=== PATIENT | female | born 1975 | race Caucasian/White ===

== ENCOUNTER 2017-11-17 10:28 | Emergency (ER) | payer SELFPAY ==
[~2017-11-17] VITALS: Ht 160 cm; Wt 60.0 kg
[~2017-11-17 10:28] MED LIST: BACT800T5 PO; CEPH500T PO; LAMI1SPR3 TOP; NAPR40TA PO
[2017-11-17 10:30] VITALS: BP 139/90; PULSE 138; RESP 16; TEMP 98.2; O2SAT 98
[2017-11-17] MEDS ORDERED: SODIUM CHLOR 0.9% 1000 ML INJ 1,000 ML IV SCH (10:43)
[2017-11-17] MEDS ORDERED: SODIUM CHLORIDE 0.9% FLUSH 10 ML FLUSH IV FLUSH PRN (10:45)
[2017-11-17 11:19] VITALS: O2SAT 97
[2017-11-17 11:38] LABS: AUTOMATED NEUTROPHIL # 2.4 TH/MM3 (1.8-7.7); BASOPHIL # 0.1 TH/MM3 (0-0.2); BASOPHIL % 1.5 % (0.0-2.0); EOSINOPHIL # 0.2 TH/MM3 (0-0.4); EOSINOPHIL % 3.1 % (0.0-4.0); HEMOGLOBIN 12.7 GM/DL (11.6-15.3); LYMPH % 37.1 % (9.0-44.0); LYMPHOCYTE # 1.9 TH/MM3 (1.0-4.8); MEAN CELL VOLUME 94.2 FL (80.0-100.0); MEAN CORPUSCULAR HEMOGLOBIN 31.6 PG (27.0-34.0); MEAN CORPUSCULAR HGB CONC 33.5 % (32.0-36.0); MEAN PLATELET VOLUME 8.4 FL (7.0-11.0); MONO % 11.3 % (0.0-8.0); MONOCYTE # 0.6 TH/MM3 (0-0.9); PLATELET COUNT 255 TH/MM3 (150-450); RED BLOOD COUNT 4.04 MIL/MM3 (4.00-5.30); RED CELL DISTRIBUTION WIDTH 22.5 % (11.6-17.2); WHITE BLOOD COUNT 5.2 TH/MM3 (4.0-11.0)
[2017-11-17 11:56] LABS: BACTERIA, URINE MANY /hpf; BILIRUBIN, URINE NEG (NEG); BLOOD, URINE NEG (NEG); GLUCOSE,URINE NEG (NEG); KETONE, URINE NEG (NEG); MUCUS URINE FEW /lpf (OCC); NITRITE,URINE POS (NEG); PH, URINE 5.5 (5.0-8.5); SQUAMOUS EPITHELIAL CELL URINE 2 /hpf (0-5); URINE COLOR YELLOW (YELLW/STRAW); URINE LEUKOCYTE ESTERASE LARGE (NEG); WHITE BLOOD CELL CLUMPS RARE
[2017-11-17 12:01] LABS: BICARBONATE 21.9 MEQ/L (21.0-32.0); CALCIUM 8.4 MG/DL (8.5-10.1); CREATININE 0.67 MG/DL (0.50-1.00)
[2017-11-17] MEDS ORDERED: CEPH-460 PO (12:09)
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
--- NOTE | 2017-11-17 15:03 | EKG ---
Date Performed: 11/17/2017 Time Performed: 11:23:56 PTAGE: 42 years EKG: Sinus rhythm NORMAL ECG PREVIOUS TRACING : 12/06/2015 15.09 Since previous tracing, no significant change. DOCTOR: Mariusz Navarrete Interpretating Date/Time 11/17/2017 15:02:22
== END 2017-11-17 12:40 | disposition home or self-care (01) ==
LOC: NEPC 10:28
DX: N39.0 Urinary tract infection, site not specified (principal); B96.20 Unspecified Escherichia coli [E. coli] as the cause of diseases classified elsewhere; R07.9 Chest pain, unspecified; F10.129 Alcohol abuse with intoxication, unspecified; J45.909 Unspecified asthma, uncomplicated; F31.9 Bipolar disorder, unspecified; F41.9 Anxiety disorder, unspecified; B20 Human immunodeficiency virus [HIV] disease; Z86.69 Personal history of other diseases of the nervous system and sense organs
CPT/HCPCS: 80048; 81001; 85025; 87077; 87086; 87186; 93005; 99284; J7030

== ENCOUNTER 2018-05-03 11:28 | Inpatient (IN) ==
[2018-05-03] MEDS ORDERED: HYDROmorphone PF Inj 1 MG/ML Ampul IV.PUSH ONE (11:37)
[2018-05-03] MEDS ORDERED: Sod Chloride 0.9% Inj 1,000 ML IV.SIG SCH (12:00)
--- NOTE | 2018-05-03 12:03 | ED ---
HPI General Chief Complaint: Extremity Injury, Lower Stated Complaint: Fall Time Seen by Provider: 05/03/18 11:37 Source: patient Mode of arrival: EMS Limitations: no limitations History of Present Illness MD complaint: Reports ankle injury Onset (ago): minute(s) Place: Reports street/outdoors Severity: moderate Relieving factors: immobilization Exacerbating factors: movement Context: Reports fall Associated symptoms: Reports unable to bear weight Other symptoms: Reports none Treatments prior to arrival: Reports cold therapy Related Data Home Medications Medication Instructions Recorded Confirmed No Known Home Medications 05/03/18 05/03/18 Allergies Allergy/AdvReac Type Severity Reaction Status Date / Time No Known Allergies Allergy Unverified 01/01/18 10:17 Review of Systems ROS: all other systems reviewed are negative [facility] Medical History Medical History Alcohol abuse (Acute) HTN (hypertension) (Acute) Tobacco abuse (Acute) Social History Social History Substance History: No History of Abuse Smoking Status: Current every day smoker Tobacco Type: Cigarettes How Often Do You Have a Drink Containing Alcohol: 4 or more times a week Recent Travel in [facility] within the Last 8 Weeks: No Recent Out of Country Travel within the Last 8 Weeks: No Immunization History Tetanus Immunization: >5 Years Exam Narrative Exam Narrative: GENERAL: 43-year-old female pleasant well-nourished well- developed mild distress secondary to pain SKIN: Focused skin assessment warm/dry. HEAD: Atraumatic. Normocephalic. EYES: Pupils equal and round. No scleral icterus. No injection or drainage. ENT: No nasal bleeding or discharge. Mucous membranes pink and moist. NECK: Trachea midline. No JVD. CARDIOVASCULAR: Regular rate and rhythm. No murmur appreciated. RESPIRATORY: No accessory muscle use. Clear to auscultation. Breath sounds equal bilaterally. GASTROINTESTINAL: Abdomen soft, non-tender, nondistended. Hepatic and splenic margins not palpable. MUSCULOSKELETAL: Gross deformity tib-fib with lateral rotation. No open fracture. 2+ dorsalis pedis pulse bilaterally. Active range of motion of the toes normal bilaterally. NEUROLOGICAL: Awake and alert. No obvious cranial nerve deficits. Motor grossly within normal limits. Normal speech. PSYCHIATRIC: Undomiciled. EtOH on breath. Reasonably cooperative. Procedures Orthopedic Fracture Reduction Fracture #1: Time Out Performed: Yes Side: left Fracture Reduction Location: tibia and fibula Analgesia: procedural sedation Technique: traction/counter-traction Post Reduction X-rays Demonstrate: acceptable reduction Post-Reduction Neuro Exam: intact Post-Reduction Vascular Exam: intact Splint Applied: Yes Patient Tolerated Procedure: well Fracture #2: Time Out Performed: Yes Side: left Fracture Reduction Location: tibia and fibula Analgesia: none Technique: direct manipulation and traction/counter-traction Post Reduction X-rays Demonstrate: acceptable reduction Post-Reduction Neuro Exam: intact Post-Reduction Vascular Exam: intact Splint Applied: Yes Patient Tolerated Procedure: well Additional Comments: initial reduction with unsatisfactory alignment in AP dimension. second reduction at bedside with positioning of a long posterior splint. intact DP before and after reduction. anterior and posterior compartments soft. Procedural Sedation Indications: fracture/dislocation reduction ASA Class: ASA 1 Normal Healthy Patient Preparation: city comptroller applied, pulse oximeter, capnometry used and supplemental O2 applied IV Propofol Dose (mgs): 100 Patient Tolerated Procedure: well Complications: none Course Initial Documented Vital Signs Temperature 97.8 F 05/03/18 11:35 Last Documented Vital Signs Temperature 97.8 F 05/03/18 11:35 Pulse Rate 95 H 05/03/18 13:06 Respiratory Rate 16 05/03/18 16:10 Blood Pressure 119/87 05/03/18 13:06 Pulse Oximetry 100 05/03/18 13:06 Medical Decision Making MDM Narrative Medical decision making narrative: Pt with tib-fib fracture with posterior displacement on post-reduction film. Second attempt at reduction achieved acceptable alignment, cold cuff placed at the same time. Second dose IV hydromorphone ordered at 240pm. Admission for ortho evaluation and intervention per ortho. d/w Dr Maciel for [facility]. d/w Dr Carty for ortho at 405pm. Medical Screen Exam Complete: Yes Emergency Medical Condition: Yes Differential Diagnosis Differential Diagnosis: fracture, contusion, open fracture, dislocation Lab Data Result diagrams: 05/03/18 13:06 05/03/18 13:06 Lab Results 05/03/18 05/03/18 05/03/18 Range/Units 13:06 13:06 13:06 WBC 3.5 L (4.0-11.0) th/mm3 RBC 3.12 L (4.00-5.30) mil/mm3 Hgb 11.3 L (11.6-15.3) gm/dL Hct 33.6 L (35.0-46.0) % MCV 107.6 H (80.0-100.0) fL MCH 36.3 H (27.0-34.0) pg MCHC 33.7 (32.0-36.0) % RDW 15.8 (11.6-17.2) % Plt Count 117 L (150-450) th/mm3 MPV 9.5 (7.0-11.0) fL Neut % (Auto) 47.3 (16.0-70.0) % Lymph % (Auto) 37.8 (9.0-44.0) % [place] % (Auto) 11.1 H (0.0-8.0) % Eos % (Auto) 3.2 (0.0-4.0) % Baso % (Auto) 0.6 (0.0-2.0) % Neut # (Auto) 1.7 L (1.8-7.7) th/mm3 Lymph # (Auto) 1.3 (1.0-4.8) th/mm3 [place] # (Auto) 0.4 (0.0-0.9) th/mm3 Eos # (Auto) 0.1 (0.0-0.4) th/mm3 Baso # (Auto) 0.0 (0.0-0.2) th/mm3 WBC Differential . Differential Comment Auto diff final PT 11.1 (9.8-11.6) sec INR 1.1 Ratio APTT 26.2 (23.4-31.7) sec Sodium 141 (136-145) meq/L Potassium 3.3 L (3.5-5.1) meq/L Chloride 111 H (98-107) meq/L Carbon Dioxide 19.1 L (21.0-32.0) meq/L Anion Gap 11 (5-15) meq/L BUN 4 L (7-18) mg/dL Creatinine 0.32 L (0.50-1.00) mg/dL Estimated GFR Greater than 89 (>89) mL/min Random Glucose 81 (74-106) mg/dL Calcium 5.9 L* (8.5-10.1) mg/dL Prot Corrected Calcium 6.3 L* (8.5-10.1) mg/dL Magnesium (1.5-2.5) mg/dL Total Bilirubin 0.2 (0.2-1.0) mg/dL AST 141 H (15-37) U/L ALT 93 H (10-53) U/L Alkaline Phosphatase 72 (45-117) U/L Total Protein 6.2 L (6.4-8.2) g/dL Albumin 2.8 L (3.4-5.0) g/dL Vitamin D 25-Hydroxy (30-100) ng/mL Urine Color (Yellw/Straw) Urine Clarity (Clear) Urine pH (5.0-8.5) Ur Specific [place] (1.002-1.035) Urine Protein (Neg-Trace) mg/dL Urine Glucose (UA) (Negative) mg/dL Urine Ketones (Negative) mg/dL Urine Occult Blood (Negative) Urine Nitrate (Negative) Urine Bilirubin (Negative) Urine Urobilinogen (Less than 2) mg/dL Ur Leukocyte Esterase (Negative) Urine WBC (0-5) /hpf Ur Squamous Epith Cells (0-5) /hpf Urine Bacteria (None) /hpf Micro UA Comment Ur Microscopic Review Serum Alcohol (0-5) mg/dL 05/03/18 05/03/18 05/03/18 Range/Units 13:06 13:06 13:06 WBC (4.0-11.0) th/mm3 RBC (4.00-5.30) mil/mm3 Hgb (11.6-15.3) gm/dL Hct (35.0-46.0) % MCV (80.0-100.0) fL MCH (27.0-34.0) pg MCHC (32.0-36.0) % RDW (11.6-17.2) % Plt Count (150-450) th/mm3 MPV (7.0-11.0) fL Neut % (Auto) (16.0-70.0) % Lymph % (Auto) (9.0-44.0) % [place] % (Auto) (0.0-8.0) % Eos % (Auto) (0.0-4.0) % Baso % (Auto) (0.0-2.0) % Neut # (Auto) (1.8-7.7) th/mm3 Lymph # (Auto) (1.0-4.8) th/mm3 [place] # (Auto) (0.0-0.9) th/mm3 Eos # (Auto) (0.0-0.4) th/mm3 Baso # (Auto) (0.0-0.2) th/mm3 WBC Differential Differential Comment PT (9.8-11.6) sec INR Ratio APTT (23.4-31.7) sec Sodium (136-145) meq/L Potassium (3.5-5.1) meq/L Chloride (98-107) meq/L Carbon Dioxide (21.0-32.0) meq/L Anion Gap (5-15) meq/L BUN (7-18) mg/dL Creatinine (0.50-1.00) mg/dL Estimated GFR (>89) mL/min Random Glucose (74-106) mg/dL Calcium (8.5-10.1) mg/dL Prot Corrected Calcium (8.5-10.1) mg/dL Magnesium 1.2 L (1.5-2.5) mg/dL Total Bilirubin (0.2-1.0) mg/dL AST (15-37) U/L ALT (10-53) U/L Alkaline Phosphatase (45-117) U/L Total Protein (6.4-8.2) g/dL Albumin (3.4-5.0) g/dL Vitamin D 25-Hydroxy 33.7 (30-100) ng/mL Urine Color (Yellw/Straw) Urine Clarity (Clear) Urine pH (5.0-8.5) Ur Specific [place] (1.002-1.035) Urine Protein (Neg-Trace) mg/dL Urine Glucose (UA) (Negative) mg/dL Urine Ketones (Negative) mg/dL Urine Occult Blood (Negative) Urine Nitrate (Negative) Urine Bilirubin (Negative) Urine Urobilinogen (Less than 2) mg/dL Ur Leukocyte Esterase (Negative) Urine WBC (0-5) /hpf Ur Squamous Epith Cells (0-5) /hpf Urine Bacteria (None) /hpf Micro UA Comment Ur Microscopic Review Serum Alcohol 282 H (0-5) mg/dL 05/03/18 Range/Units 13:07 WBC (4.0-11.0) th/mm3 RBC (4.00-5.30) mil/mm3 Hgb (11.6-15.3) gm/dL Hct (35.0-46.0) % MCV (80.0-100.0) fL MCH (27.0-34.0) pg MCHC (32.0-36.0) % RDW (11.6-17.2) % Plt Count (150-450) th/mm3 MPV (7.0-11.0) fL Neut % (Auto) (16.0-70.0) % Lymph % (Auto) (9.0-44.0) % [place] % (Auto) (0.0-8.0) % Eos % (Auto) (0.0-4.0) % Baso % (Auto) (0.0-2.0) % Neut # (Auto) (1.8-7.7) th/mm3 Lymph # (Auto) (1.0-4.8) th/mm3 [place] # (Auto) (0.0-0.9) th/mm3 Eos # (Auto) (0.0-0.4) th/mm3 Baso # (Auto) (0.0-0.2) th/mm3 WBC Differential Differential Comment PT (9.8-11.6) sec INR Ratio APTT (23.4-31.7) sec Sodium (136-145) meq/L Potassium (3.5-5.1) meq/L Chloride (98-107) meq/L Carbon Dioxide (21.0-32.0) meq/L Anion Gap (5-15) meq/L BUN (7-18) mg/dL Creatinine (0.50-1.00) mg/dL Estimated GFR (>89) mL/min Random Glucose (74-106) mg/dL Calcium (8.5-10.1) mg/dL Prot Corrected Calcium (8.5-10.1) mg/dL Magnesium (1.5-2.5) mg/dL Total Bilirubin (0.2-1.0) mg/dL AST (15-37) U/L ALT (10-53) U/L Alkaline Phosphatase (45-117) U/L Total Protein (6.4-8.2) g/dL Albumin (3.4-5.0) g/dL Vitamin D 25-Hydroxy (30-100) ng/mL Urine Color Yellow (Yellw/Straw) Urine Clarity Haz[place] H (Clear) Urine pH 5.0 (5.0-8.5) Ur Specific [place] 1.003 (1.002-1.035) Urine Protein Negative (Neg-Trace) mg/dL Urine Glucose (UA) Negative (Negative) mg/dL Urine Ketones Negative (Negative) mg/dL Urine Occult Blood Negative (Negative) Urine Nitrate Positive H (Negative) Urine Bilirubin Negative (Negative) Urine Urobilinogen Less than 2 (Less than 2) mg/dL Ur Leukocyte Esterase Small H (Negative) Urine WBC 1 (0-5) /hpf Ur Squamous Epith Cells <1 (0-5) /hpf Urine Bacteria Few H (None) /hpf Micro UA Comment Cath Ur Microscopic Review Not Reportable Serum Alcohol (0-5) mg/dL Imaging Data Radiologist's impression: Ankle X-Ray 05/03/18 11:37 CONCLUSION: Acute displaced comminuted and angulated fractures involving the left distal tibia and fibula without evidence of the ankle joint. Tibia/Fibula X-Ray 05/03/18 11:39 CONCLUSION: Acute angulated displaced comminuted fractures involving the left distal fibula and tibia without evidence of involvement of the ankle joint. Tibia/Fibula X-Ray 05/03/18 12:43 CONCLUSION: Comminuted displaced fractures of the distal tibia and fibula with increased posterior displacement on post reduction film. Chest X-Ray 05/03/18 12:47 CONCLUSION: Negative examination. Tibia/Fibula X-Ray 05/03/18 14:11 CONCLUSION: Acute comminuted mildly displaced fractures involving the left distal fibula and tibia without involvement of the ankle joint. Discharge Plan Discharge Disposition Patient Disposition: 30 Still Patient Physicians Team ED Provider: Shahab Szymanski Primary Care Provider: Primary Care Carlene Park Attending Provider: Neri Ward Other Providers: Bob Carty Status ED Status: Left Department Discharge Information Discharge Date/Time: 05/03/18 14:51
--- NOTE | 2018-05-03 12:41 | XR ---
EXAM DATE: 05/03/2018 12:09 PM EST AGE/SEX: 43 years / Female INDICATIONS: Left ankle pain after fall. CLINICAL DATA: This is the patient's initial encounter. Patient reports that signs and symptoms have been present for 1 day and indicates a pain score of 10/10. MEDICAL/SURGICAL HISTORY: None. None. COMPARISON: No prior exams available for comparison. FINDINGS: Acute displaced comminuted and angulated fractures involving the left distal tibia and fibula are not ed. There is no evidence of involvement of the ankle joint. CONCLUSION: Acute displaced comminuted and angulated fractures involving the left distal tibia and fibula without evidence of the ankle joint. Electronically signed by: Surya Alejandro MD 05/03/2018 12:40 PM EST
--- NOTE | 2018-05-03 12:42 | XR ---
EXAM DATE: 05/03/2018 12:10 PM EST AGE/SEX: 43 years / Female INDICATIONS: Left distal tibia pain after fall. CLINICAL DATA: This is the patient's initial encounter. Patient reports that signs and symptoms have been present for 1 day and indicates a pain score of 10/10. MEDICAL/SURGICAL HISTORY: None. None. COMPARISON: C, ANKLE COMPLETE LEFT MIN 3V, 05/03/2018. . FINDINGS: There are acute angulated displaced comminuted fractures involving the left distal fibula and tibia w ithout evidence of involvement of the ankle joint. CONCLUSION: Acute angulated displaced comminuted fractures involving the left distal fibula and tibia without ana dence of involvement of the ankle joint. Electronically signed by: Surya Alejandro MD 05/03/2018 12:41 PM EST
[2018-05-03 13:17] LABS: Baso % (Auto) 0.6 % (0.0-2.0); Eos # (Auto) 0.1 th/mm3 (0.0-0.4); Eos % (Auto) 3.2 % (0.0-4.0); Hematocrit 33.6 % (35.0-46.0); Hemoglobin 11.3 gm/dL (11.6-15.3); Lymph # (Auto) 1.3 th/mm3 (1.0-4.8); Lymph % (Auto) 37.8 % (9.0-44.0); Mean Corpuscular HGB Conc 33.7 % (32.0-36.0); Mean Corpuscular Hemoglobin 36.3 pg (27.0-34.0); Mean Corpuscular Volume 107.6 fL (80.0-100.0); Mean Platelet Volume 9.5 fL (7.0-11.0); Mono # (Auto) 0.4 th/mm3 (0.0-0.9); Mono % (Auto) 11.1 % (0.0-8.0); Neut # (Auto) 1.7 th/mm3 (1.8-7.7); Neut % (Auto) 47.3 % (16.0-70.0); Platelet Count 117 th/mm3 (150-450); Red Blood Count 3.12 mil/mm3 (4.00-5.30); Red Cell Distribution Width 15.8 % (11.6-17.2); White Blood Count 3.5 th/mm3 (4.0-11.0)
--- NOTE | 2018-05-03 13:20 | XR ---
EXAM DATE: 05/03/2018 1:17 PM EST AGE/SEX: 43 years / Female INDICATIONS: Evaluate for pneumonia, pneumothorax, or communicable disease. CLINICAL DATA: This is the patient's subsequent encounter. Patient reports that signs and symptoms h ave been present for 1 day and indicates a pain score of 0/10. MEDICAL/SURGICAL HISTORY: None. None. COMPARISON: [facility] [place], CHEST SINGLE AP, 12/06/2015. . FINDINGS: A single AP view of the chest demonstrates the lungs to be symmetrically aerated without evidence of mass, infiltrate or effusion. The cardiomediastinal contours are unremarkable. Osseous structures a re intact. CONCLUSION: Negative examination. Electronically signed by: Jayashree Newman MD 05/03/2018 1:19 PM EST
[2018-05-03 13:22] LABS: Bacteria,Urine Few /hpf; Bilirubin,Urine Negative (Negative); Clarity,Urine Hazy (Clear); Color,Urine Yellow (Yellw/Straw); Glucose,Urine (UA) Negative (Negative); Leukocyte Esterase,Urine Small (Negative); Nitrite,Urine Positive (Negative); Specific Gravity,Urine 1.003 (1.002-1.035); Squamous Epithelial Cell,Urine <1 /hpf (0-5)
[2018-05-03 13:26] LABS: Activated Partial Thrombo Time 26.2 sec (23.4-31.7); INR 1.1 Ratio; Prothrombin Time 11.1 sec (9.8-11.6)
--- NOTE | 2018-05-03 13:30 | XR ---
EXAM DATE: 05/03/2018 1:21 PM EST AGE/SEX: 43 years / Female INDICATIONS: Post reduction left tibia/fibula pain. CLINICAL DATA: This is the patient's initial encounter. Patient reports that signs and symptoms have been present for 1 day and indicates a pain score of 6/10. MEDICAL/SURGICAL HISTORY: None. None. COMPARISON: [facility] [place]IB[place] FIBULA LEFT 2V, 05/03/2018. . FINDINGS: Imaging of the left tibia and fibula is performed with the exam in cast material. There is a comminut ed displaced fracture involving the distal tibia and fibula with the fracture fragments displaced pos teriorly one full shaft width on the lateral view. This appears to be new from the prior exam. The pr eviously noted lateral angulation seen on the nonreduced film has been corrected. CONCLUSION: Comminuted displaced fractures of the distal tibia and fibula with increased posterior displacement o n post reduction film. Electronically signed by: Jayashree Newman MD 05/03/2018 1:28 PM EST
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
[2018-05-03 13:34] LABS: Anion Gap 11 meq/L (5-15)
[2018-05-03 13:40] LABS: Alanine Aminotransferase 93 U/L (10-53); Albumin 2.8 g/dL (3.4-5.0); Alkaline Phosphatase 72 U/L (45-117); Aspartate Aminotransferase 141 U/L (15-37); Blood Urea Nitrogen 4 mg/dL (7-18); Calcium 5.9 mg/dL (8.5-10.1); Carbon Dioxide 19.1 meq/L (21.0-32.0); Chloride 111 meq/L (98-107); Glomerular Filtration Rate Greater Than 89 mL/min (>89); Glucose,Random 81 mg/dL (74-106); Potassium 3.3 meq/L (3.5-5.1); Sodium 141 meq/L (136-145); Total Protein 6.2 g/dL (6.4-8.2)
[2018-05-03] MEDS ORDERED: Naloxone Inj 0.4 MG/ML Vial IV.PUSH PRN ×2 (13:47→13:52)
[2018-05-03] MEDS ORDERED: Acetaminophen 325 MG Tablet PO PRN (13:47)
[2018-05-03] MEDS ORDERED: Haloperidol Inj 5 MG/ML Ampul IV.PUSH PRN (13:51)
[2018-05-03] MEDS ORDERED: LORazepam 1 MG Tablet PO PRN (13:51)
[2018-05-03] MEDS ORDERED: Morphine Sulfate Inj 2 MG/ML Vial IV.PUSH PRN (13:52)
[2018-05-03] MEDS ORDERED: Morphine Inj 4 MG/ML Vial IV.PUSH PRN ×2 (13:52)
[2018-05-03] MEDS: Sod Chloride 0.9% Inj 1,000 ML IV.CONT SCH (13:57)
[2018-05-03] MEDS ORDERED: HYDROmorphone PF Inj 2 MG/ML Vial IV.PUSH ONE (14:11)
[2018-05-03] MEDS ORDERED: Calcium Gluconate Inj 1 GM in Dextrose 5% in Water Inj 100 ML IV.SIG ONE ×2 (15:00)
--- NOTE | 2018-05-03 15:33 | XR ---
EXAM DATE: 05/03/2018 2:59 PM EST AGE/SEX: 43 years / Female INDICATIONS: Post reduction CLINICAL DATA: This is the patient's subsequent encounter. Patient reports that signs and symptoms h ave been present for 1 day and indicates a pain score of 5/10. MEDICAL/SURGICAL HISTORY: None. None. COMPARISON: . FINDINGS: Acute comminuted mildly displaced fractures involving the left distal tibia and fibula are noted. The re is no involvement of the ankle joint. CONCLUSION: Acute comminuted mildly displaced fractures involving the left distal fibula and tibia without involv ement of the ankle joint. Electronically signed by: Suray Alejandro MD 05/03/2018 3:32 PM EST
[2018-05-03] MEDS: Morphine Inj 4 MG/ML Vial IV.PUSH PRN ×3 (15:50→22:02)
[2018-05-03] MEDS ORDERED: Mag Sulf 1 gm/100 ml Premix 100 ML IV.SIG ONE (16:00)
[2018-05-03 20:25] LABS: Hepatitits B Surface Antigen Nonreactive (Nonreactive)
[2018-05-03 20:46] LABS: Hepatitis A IgM Antibody Nonreactive (Nonreactive)
[2018-05-04] MEDS: Sod Chloride 0.9% Inj 1,000 ML IV.CONT SCH ×3 (00:03→22:40)
[2018-05-04] MEDS: Morphine Inj 4 MG/ML Vial IV.PUSH PRN ×4 (01:22→14:41)
[2018-05-04 07:56] LABS: Baso % (Auto) 0.6 % (0.0-2.0); Eos # (Auto) 0.1 th/mm3 (0.0-0.4); Eos % (Auto) 2.5 % (0.0-4.0); Hematocrit 32.8 % (35.0-46.0); Lymph % (Auto) 31.5 % (9.0-44.0); Mean Corpuscular HGB Conc 33.5 % (32.0-36.0); Mean Corpuscular Hemoglobin 35.4 pg (27.0-34.0); Mean Corpuscular Volume 105.8 fL (80.0-100.0); Mean Platelet Volume 9.4 fL (7.0-11.0); Mono # (Auto) 0.7 th/mm3 (0.0-0.9); Mono % (Auto) 23.2 % (0.0-8.0); Neut # (Auto) 1.3 th/mm3 (1.8-7.7); Neut % (Auto) 42.2 % (16.0-70.0); Platelet Count 119 th/mm3 (150-450); Red Cell Distribution Width 15.8 % (11.6-17.2); White Blood Count 3.1 th/mm3 (4.0-11.0)
[2018-05-04] MEDS ORDERED: ceFAZolin 1 GM Premix Inj 1 GM/50 ML FROZ.PIGGY IV.SIG ONE ×2 (08:30→09:54)
[2018-05-04 08:32] LABS: Alanine Aminotransferase 84 U/L (10-53); Albumin 3.2 g/dL (3.4-5.0); Alkaline Phosphatase 77 U/L (45-117); Anion Gap 6 meq/L (5-15); Aspartate Aminotransferase 100 U/L (15-37); Blood Urea Nitrogen 3 mg/dL (7-18); Calcium 7.4 mg/dL (8.5-10.1); Carbon Dioxide 25.1 meq/L (21.0-32.0); Chloride 109 meq/L (98-107); Glomerular Filtration Rate Greater Than 89 mL/min (>89); Glucose,Random 94 mg/dL (74-106); Magnesium 1.9 mg/dL (1.5-2.5); Sodium 140 meq/L (136-145); Total Protein 6.9 g/dL (6.4-8.2)
[2018-05-04] MEDS ORDERED: Famotidine PF Inj 20 MG/2 ML Vial ONE (09:16)
[2018-05-04] MEDS ORDERED: Promethazine 25 MG Supp RECTAL PRN (10:58)
[2018-05-04] MEDS ORDERED: Post-op Orders (for Pharmacy) OTHER STA (10:58)
[2018-05-04] MEDS ORDERED: Bisacodyl 10 MG Supp RECTAL PRN (10:58)
[2018-05-04] MEDS ORDERED: Morphine Inj 4 MG/ML Vial IV.PUSH PRN (10:58)
[2018-05-04] MEDS ORDERED: Zolpidem Tartrate 5 MG Tablet PO PRN (10:58)
[2018-05-04] MEDS ORDERED: ceFAZolin Inj 2,000 MG in Sodium Chlor 0.9% Inj 80 ML IV.SIG SCH (11:00)
[2018-05-04] MEDS ORDERED: *Meperidine Inj 25 MG/ML Vial PERIprocedural Use ONLY ONE (11:12)
[2018-05-04] MEDS ORDERED: fentaNYL Citrate Inj 100 MCG/2 ML Ampul ONE ×2 (11:19)
[2018-05-04] MEDS ORDERED: *morphine SULFATE 4 MG/ML PERIprocedure ONLY ONE (11:31)
--- NOTE | 2018-05-04 13:08 | P.PNFP ---
Subjective Interval history: No acute events overnight. Remains afebrile, vitals stable. Patient was seen and examined following her surgery this morning. She endorses some pain of her left leg. Denies severe or excruciating pain. She otherwise does not report specific complaints or concerns. Denies fevers, CP, shortness of breath. <Tyson Kim - 05/04/18 13:08> Results - Labs Result diagrams: 05/04/18 06:43 05/04/18 06:43 <Neri Ward - 05/04/18 13:36> Abnormal lab results 05/03/18 05/03/18 05/03/18 Range/Units 13:06 13:06 13:06 WBC (4.0-11.0) th/mm3 RBC (4.00-5.30) mil/mm3 Hgb (11.6-15.3) gm/dL Hct (35.0-46.0) % MCV (80.0-100.0) fL MCH (27.0-34.0) pg Plt Count (150-450) th/mm3 [place] % (Auto) (0.0-8.0) % Neut # (Auto) (1.8-7.7) th/mm3 Potassium 3.3 L (3.5-5.1) meq/L Chloride 111 H (98-107) meq/L Carbon Dioxide 19.1 L (21.0-32.0) meq/L BUN 4 L (7-18) mg/dL Creatinine 0.32 L (0.50-1.00) mg/dL Calcium 5.9 L* (8.5-10.1) mg/dL Prot Corrected Calcium 6.3 L* (8.5-10.1) mg/dL Magnesium 1.2 L (1.5-2.5) mg/dL AST 141 H (15-37) U/L ALT 93 H (10-53) U/L Total Protein 6.2 L (6.4-8.2) g/dL Albumin 2.8 L (3.4-5.0) g/dL Serum Alcohol 282 H (0-5) mg/dL Hep C IgG Ab (Nonreactive) 05/03/18 05/04/18 05/04/18 Range/Units 18:39 06:43 06:43 WBC 3.1 L (4.0-11.0) th/mm3 RBC 3.10 L (4.00-5.30) mil/mm3 Hgb 11.0 L (11.6-15.3) gm/dL Hct 32.8 L (35.0-46.0) % MCV 105.8 H (80.0-100.0) fL MCH 35.4 H (27.0-34.0) pg Plt Count 119 L (150-450) th/mm3 [place] % (Auto) 23.2 H (0.0-8.0) % Neut # (Auto) 1.3 L (1.8-7.7) th/mm3 Potassium (3.5-5.1) meq/L Chloride 109 H (98-107) meq/L Carbon Dioxide (21.0-32.0) meq/L BUN 3 L (7-18) mg/dL Creatinine 0.46 L (0.50-1.00) mg/dL Calcium 7.4 L* D (8.5-10.1) mg/dL Prot Corrected Calcium 7.5 L D (8.5-10.1) mg/dL Magnesium (1.5-2.5) mg/dL AST 100 H (15-37) U/L ALT 84 H (10-53) U/L Total Protein (6.4-8.2) g/dL Albumin 3.2 L (3.4-5.0) g/dL Serum Alcohol (0-5) mg/dL Hep C IgG Ab Reactive H (Nonreactive) Short CBC 05/04/18 Range/Units 06:43 WBC 3.1 L (4.0-11.0) th/mm3 Hgb 11.0 L (11.6-15.3) gm/dL Hct 32.8 L (35.0-46.0) % Plt Count 119 L (150-450) th/mm3 BMP 05/03/18 05/04/18 13:06 06:43 Sodium 141 140 Potassium 3.3 L 4.0 Chloride 111 H 109 H Carbon Dioxide 19.1 L 25.1 BUN 4 L 3 L Creatinine 0.32 L 0.46 L Calcium 5.9 L* 7.4 L* D Liver Function 05/03/18 05/04/18 Range/Units 13:06 06:43 Total Bilirubin 0.2 0.6 (0.2-1.0) mg/dL AST 141 H 100 H (15-37) U/L ALT 93 H 84 H (10-53) U/L Alkaline Phosphatase 72 77 (45-117) U/L Albumin 2.8 L 3.2 L (3.4-5.0) g/dL <AmeliaNeri moralez K - 05/04/18 13:36> Abnormal lab results 05/03/18 05/03/18 05/03/18 Range/Units 13:06 13:06 13:06 WBC 3.5 L (4.0-11.0) th/mm3 RBC 3.12 L (4.00-5.30) mil/mm3 Hgb 11.3 L (11.6-15.3) gm/dL Hct 33.6 L (35.0-46.0) % MCV 107.6 H (80.0-100.0) fL MCH 36.3 H (27.0-34.0) pg Plt Count 117 L (150-450) th/mm3 [place] % (Auto) 11.1 H (0.0-8.0) % Neut # (Auto) 1.7 L (1.8-7.7) th/mm3 Potassium 3.3 L (3.5-5.1) meq/L Chloride 111 H (98-107) meq/L Carbon Dioxide 19.1 L (21.0-32.0) meq/L BUN 4 L (7-18) mg/dL Creatinine 0.32 L (0.50-1.00) mg/dL Calcium 5.9 L* (8.5-10.1) mg/dL Prot Corrected Calcium 6.3 L* (8.5-10.1) mg/dL Magnesium 1.2 L (1.5-2.5) mg/dL AST 141 H (15-37) U/L ALT 93 H (10-53) U/L Total Protein 6.2 L (6.4-8.2) g/dL Albumin 2.8 L (3.4-5.0) g/dL Urine Clarity (Clear) Urine Nitrate (Negative) Ur Leukocyte Esterase (Negative) Urine Bacteria (None) /hpf Serum Alcohol (0-5) mg/dL Hep C IgG Ab (Nonreactive) 05/03/18 05/03/18 05/03/18 Range/Units 13:06 13:07 18:39 WBC (4.0-11.0) th/mm3 RBC (4.00-5.30) mil/mm3 Hgb (11.6-15.3) gm/dL Hct (35.0-46.0) % MCV (80.0-100.0) fL MCH (27.0-34.0) pg Plt Count (150-450) th/mm3 [place] % (Auto) (0.0-8.0) % Neut # (Auto) (1.8-7.7) th/mm3 Potassium (3.5-5.1) meq/L Chloride (98-107) meq/L Carbon Dioxide (21.0-32.0) meq/L BUN (7-18) mg/dL Creatinine (0.50-1.00) mg/dL Calcium (8.5-10.1) mg/dL Prot Corrected Calcium (8.5-10.1) mg/dL Magnesium (1.5-2.5) mg/dL AST (15-37) U/L ALT (10-53) U/L Total Protein (6.4-8.2) g/dL Albumin (3.4-5.0) g/dL Urine Clarity Hazy H (Clear) Urine Nitrate Positive H (Negative) Ur Leukocyte Esterase Small H (Negative) Urine Bacteria Few H (None) /hpf Serum Alcohol 282 H (0-5) mg/dL Hep C IgG Ab Reactive H (Nonreactive) 05/04/18 05/04/18 Range/Units 06:43 06:43 WBC 3.1 L (4.0-11.0) th/mm3 RBC 3.10 L (4.00-5.30) mil/mm3 Hgb 11.0 L (11.6-15.3) gm/dL Hct 32.8 L (35.0-46.0) % MCV 105.8 H (80.0-100.0) fL MCH 35.4 H (27.0-34.0) pg Plt Count 119 L (150-450) th/mm3 [place] % (Auto) 23.2 H (0.0-8.0) % Neut # (Auto) 1.3 L (1.8-7.7) th/mm3 Potassium (3.5-5.1) meq/L Chloride 109 H (98-107) meq/L Carbon Dioxide (21.0-32.0) meq/L BUN 3 L (7-18) mg/dL Creatinine 0.46 L (0.50-1.00) mg/dL Calcium 7.4 L* D (8.5-10.1) mg/dL Prot Corrected Calcium 7.5 L D (8.5-10.1) mg/dL Magnesium (1.5-2.5) mg/dL AST 100 H (15-37) U/L ALT 84 H (10-53) U/L Total Protein (6.4-8.2) g/dL Albumin 3.2 L (3.4-5.0) g/dL Urine Clarity (Clear) Urine Nitrate (Negative) Ur Leukocyte Esterase (Negative) Urine Bacteria (None) /hpf Serum Alcohol (0-5) mg/dL Hep C IgG Ab (Nonreactive) Short CBC 05/03/18 05/04/18 Range/Units 13:06 06:43 WBC 3.5 L 3.1 L (4.0-11.0) th/mm3 Hgb 11.3 L 11.0 L (11.6-15.3) gm/dL Hct 33.6 L 32.8 L (35.0-46.0) % Plt Count 117 L 119 L (150-450) th/mm3 BMP 05/03/18 05/04/18 13:06 06:43 Sodium 141 140 Potassium 3.3 L 4.0 Chloride 111 H 109 H Carbon Dioxide 19.1 L 25.1 BUN 4 L 3 L Creatinine 0.32 L 0.46 L Calcium 5.9 L* 7.4 L* D Liver Function 05/03/18 05/04/18 Range/Units 13:06 06:43 Total Bilirubin 0.2 0.6 (0.2-1.0) mg/dL AST 141 H 100 H (15-37) U/L ALT 93 H 84 H (10-53) U/L Alkaline Phosphatase 72 77 (45-117) U/L Albumin 2.8 L 3.2 L (3.4-5.0) g/dL Urine 05/03/18 Range/Units 13:07 Urine Color Yellow (Yellw/Straw) Urine Clarity Hazy H (Clear) Urine pH 5.0 (5.0-8.5) Ur Specific [place] 1.003 (1.002-1.035) Urine Protein Negative (Neg-Trace) mg/dL Urine Glucose (UA) Negative (Negative) mg/dL <Tyson Kim - 05/04/18 13:08> - Imaging Impressions Tibia/Fibula X-Ray 05/03/18 14:11 CONCLUSION: Acute comminuted mildly displaced fractures involving the left distal fibula and tibia without involvement of the ankle joint. <Neri Ward K - 05/04/18 13:36> Impressions Tibia/Fibula X-Ray 05/03/18 12:43 CONCLUSION: Comminuted displaced fractures of the distal tibia and fibula with increased posterior displacement on post reduction film. Chest X-Ray 05/03/18 12:47 CONCLUSION: Negative examination. Tibia/Fibula X-Ray 05/03/18 14:11 CONCLUSION: Acute comminuted mildly displaced fractures involving the left distal fibula and tibia without involvement of the ankle joint. <Tyson Kim - 05/04/18 13:08> Physical Exam Vital signs: Vital Signs 05/03/18 16:10 05/03/18 17:14 05/03/18 20:00 Temperature 97.8 F Pulse Rate 102 H Respiratory Rate 16 17 Blood Pressure 121/79 Pulse Oximetry 97 97 05/04/18 00:00 05/04/18 00:58 05/04/18 04:00 Temperature 97.6 F 97.9 F Pulse Rate 98 H 94 H Respiratory Rate 17 16 Blood Pressure 146/78 H 119/73 Pulse Oximetry 96 98 95 05/04/18 08:00 05/04/18 12:00 Temperature 98.9 F 97.3 F L Pulse Rate 95 H 84 Respiratory Rate 18 18 Blood Pressure 124/75 138/71 Pulse Oximetry 97 96 Intake & Output 05/03/18 05/04/18 05/04/18 18:59 06:59 18:59 Intake Total 1310 / 1310 1000 / 1000 Output Total 400 / 400 Balance 1310 / 1310 600 / 600 Weight 58.967 kg 61.2 kg Intake: IV 1310 / 1310 1000 / 1000 NS Inj 1,000 ML @ 100 mls/hr IV 1000 / 1000 .CONT .Q10H [facility] Rx#:[id number] Calcium Gluconate Inj 1 GM In 110 / 110 D5W Inj 100 ML @ 110 mls/hr IV. SIG ONCE ONE Rx#:[id number] Magnesium Sulfate 1 gm/D5W 100 100 / 100 ml Premix 100 ML @ 100 mls/hr IV.SIG ONCE ONE Rx#:[id number] NS Inj 1,000 ML @ 1000 mls/hr 1000 / 1000 IV.SIG BOLUS [facility] Rx#:[id number] Rocephin Inj 1,000 MG In NS Inj 100 / 100 100 ML @ 200 mls/hr IV.SIG ONCE ONE Rx#:[id number] Output: Urine 400 / 400 Other: # Voids 2 4 Date of Last Bowel Movement 05/02/18 05/02/18 Weight On Admission 58.967 kg <Neri Ward - 05/04/18 13:36> Vital Signs 05/03/18 13:06 05/03/18 16:10 05/03/18 17:14 Temperature Pulse Rate 95 H Respiratory Rate 20 16 Blood Pressure 119/87 Pulse Oximetry 100 97 05/03/18 20:00 05/04/18 00:00 05/04/18 00:58 Temperature 97.8 F 97.6 F Pulse Rate 102 H 98 H Respiratory Rate 17 17 Blood Pressure 121/79 146/78 H Pulse Oximetry 97 96 98 05/04/18 04:00 05/04/18 08:00 Temperature 97.9 F 98.9 F Pulse Rate 94 H 95 H Respiratory Rate 16 18 Blood Pressure 119/73 124/75 Pulse Oximetry 95 97 Intake & Output 05/03/18 05/04/18 05/04/18 18:59 06:59 18:59 Intake Total 1310 / 1310 1000 / 1000 Output Total 400 / 400 Balance 1310 / 1310 600 / 600 Weight 58.967 kg 61.2 kg Intake: IV 1310 / 1310 1000 / 1000 NS Inj 1,000 ML @ 100 mls/hr IV 1000 / 1000 .CONT .Q10H [facility] Rx#:[id number] Calcium Gluconate Inj 1 GM In 110 / 110 D5W Inj 100 ML @ 110 mls/hr IV. SIG ONCE ONE Rx#:[id number] Magnesium Sulfate 1 gm/D5W 100 100 / 100 ml Premix 100 ML @ 100 mls/hr IV.SIG ONCE ONE Rx#:[id number] NS Inj 1,000 ML @ 1000 mls/hr 1000 / 1000 IV.SIG BOLUS [facility] Rx#:[id number] Rocephin Inj 1,000 MG In NS Inj 100 / 100 100 ML @ 200 mls/hr IV.SIG ONCE ONE Rx#:[id number] Output: Urine 400 / 400 Other: # Voids 2 4 Date of Last Bowel Movement 05/02/18 05/02/18 Weight On Admission 58.967 kg <Tyson Kim - 05/04/18 13:08> Narrative: GENERAL: NAD, sitting comfortably in bed NEURO: AOx3. Normal speech. rn lpn cna grossly intact. SKIN: Warm and dry. Left leg wrapped in arpan bandage. Able to moves all of her toes. Sensation is intact to all toes. HEAD: Normocephalic. Atraumatic. EYES: EOMI. No scleral icterus. No injection or drainage. ENT: No nasal drainage. Moist mucous membranes. No oral ulcers or lesions. NECK: Supple, trachea midline. No JVD or lymphadenopathy. No carotid bruits. CARDIOVASCULAR: Regular rate and rhythm without murmurs, gallops, or rubs. Peripheral pulses 2+. Capillary refill < 2 seconds. RESPIRATORY: Breath sounds clear to auscultation and equal bilaterally, without wheezes, rales, or rhonchi. No accessory muscle use. GASTROINTESTINAL: Abdomen soft, non-tender, nondistended. No organomegaly or masses. MUSCULOSKELETAL: No lower extremity edema. <Tyson Kim - 05/04/18 13:08> Assessment and Plan - Assessment (1) Tibia/fibula fracture Code(s): S82.209A - Unspecified fracture of shaft of unspecified tibia, initial encounter for closed fracture; S82.409A - Unspecified fracture of shaft of unspecified fibula, initial encounter for closed fracture Status: Resolved (2) Hypocalcemia Code(s): E83.51 - Hypocalcemia Status: Acute (3) UTI (urinary tract infection) Code(s): N39.0 - Urinary tract infection, site not specified Status: Acute (4) Alcohol abuse Code(s): F10.10 - Alcohol abuse, uncomplicated Status: Chronic (5) Hypokalemia Code(s): E87.6 - Hypokalemia Status: Resolved (6) Elevated liver enzymes Code(s): R74.8 - Abnormal levels of other serum enzymes Status: Acute (7) Nutrition, metabolism, and development symptoms Code(s): R63.8 - Other symptoms and signs concerning food and fluid intake Status: Acute <Neri Ward - 05/04/18 13:36> (1) Tibia/fibula fracture Code(s): S82.209A - Unspecified fracture of shaft of unspecified tibia, initial encounter for closed fracture; S82.409A - Unspecified fracture of shaft of unspecified fibula, initial encounter for closed fracture Status: Resolved Plan: Patient had a closed tibia\fibula fracture s/p repair in the OR 05/04 -Consult orthopedics, appreciate recommendations -Pain management with a morphine pain scale -Regular diet is ordered -Continue NS at 100 cc/hr -PT consulted (2) Hypocalcemia Code(s): E83.51 - Hypocalcemia Status: Acute Plan: Patient with a severe fracture after ground-level fall and history of previous fractures who is perimenopausal with a corrected calcium of 6.3. Her hypocalcemia is likely due to low dietary intake of calcium but need to rule out parathyroid dysfunction or vitamin/mineral deficiency. -Serum PTH wnl -Patient given an additional 1 gm of IV Calcium gluconate this AM -Vitamin D pending -Continue to monitor calcium and vitamin D and replete as needed -Patient may benefit from treatment of osteoporosis once serum Ca and vitamin d are normalized (3) UTI (urinary tract infection) Code(s): N39.0 - Urinary tract infection, site not specified Status: Acute Plan: Patient reports a history of UTIs since she was a child. Per chart review patient has a history of ureterovesical reflux which she had surgery for as a child. Her last UTI was in December. -UA positive for nitrates, small leukocyte esterase, and few bacteria. -Patient was treated with 1 gm ceftriaxone in the ED -Continue ceftriaxone 1 gm q24h x 3 doses (4) Alcohol abuse Code(s): F10.10 - Alcohol abuse, uncomplicated Status: Chronic Plan: Patient drinks about 8 beers daily. Her last drink was around 11 AM of 05/03. She reported she has had withdrawal seizures previously. -Alcohol level 292 -[facility] protocol -Counseled on alcohol cessation -PO rally pack (5) Hypokalemia Code(s): E87.6 - Hypokalemia Status: Resolved Plan: Resolved, continue to monitor (6) Elevated liver enzymes Code(s): R74.8 - Abnormal levels of other serum enzymes Status: Acute Plan: Patient's AST is 141 and ALT 93. This is likely secondary to alcohol use. -Counseled patient on alcohol cessation -Continue to monitor (7) Nutrition, metabolism, and development symptoms Code(s): R63.8 - Other symptoms and signs concerning food and fluid intake Status: Acute Plan: Fluids: NS at 100 cc/hr Electrolytes: Monitor and replete as needed Nutrition: Regular DVT: SCD on right leg, aspirin 81 mg po q12h per orthopedic surgery <Tyson Kim - 05/04/18 13:08> - Attending Attestation The exam, history, and the medical decision-making described in the above note were completed with the assistance of the resident physician. I reviewed and agree with the findings presented. I attest that I had a [id number] encounter with the patient on the same day, and personally performed and documented my assessment and findings in the medical record. Being wheeled back to room from OR when I saw her today. doing well post op. work on discharge tomorrow, will be a little complicated as she lives in the [facility]. <Neri Ward - 05/04/18 13:36>
--- NOTE | 2018-05-04 13:26 | MP ---
cc: Bob Carty MD DATE OF OPERATION: 05/04/2018 PREOPERATIVE DIAGNOSIS: Left tibiofibular fracture. POSTOPERATIVE DIAGNOSIS: Left tibiofibular fracture. PROCEDURE PERFORMED: Intramedullary nailing, left tibia fracture. SURGEON: Bob Carty MD DISCHARGE DOOR OPERATOR: LUIS CARLOS Amato ANESTHESIA: General. ESTIMATED BLOOD LOSS: 100 mL TOURNIQUET TIME: Zero. COMPLICATIONS: None. IMPLANTS: Synthes. JUSTIFICATION: This patient is a 43-year-old female who fell sustaining a left comminuted displaced tibia-fibula shaft fracture. She was taken to [facility] Emergency Room. X-rays confirmed the above-named findings. Orthopedic surgery consulted. The patient was counseled as to the risks, benefits, and alternatives to the above-named proposed surgical procedure. She did wish to proceed with surgery. PROCEDURE IN DETAIL: Written consent was obtained. The patient was identified by name, taken to the operating room, and placed supine on the operating room table. General anesthesia was administered. The patient was 2 g of IV Ancef and 1 g of IV vancomycin. The left lower extremity was prepped and draped using isopropyl alcohol, Hibiclens solution, and DuraPrep solution. After a timeout was performed, longitudinal incision was made over the superior aspect of the left knee. The quadriceps tendon was split in line with its fibers. A Synthes patellar protection sleeve was then placed underneath the patella, and a guide pin was drilled, gaining entrance into the intramedullary canal of the tibia. This was followed by cannulated entry reamer. Subsequently, a long beaded-tip guidewire was placed on the intramedullary canal of the tibia and a longitudinal incision made over the region of the fracture. An open reduction was performed with fracture reduction tenaculum clamps. The guidewire was then placed across the fracture. Sequential reaming began at size 8.5, was carried through to size 10. Subsequently, a Synthes 9 x 285 mm titanium tibial nail was inserted into the intramedullary canal of the tibia. The proximal locking jig was used to place 2 proximal locking screws distally. The fluoroscopic perfect [place] technique was used to place 2 lateral to medial transverse static locking screws. Fluoroscopic imaging confirmed hardware placement, fracture reduction. Surgical wound was thoroughly irrigated with sterile saline solution. The quadriceps tendon was closed with 0 Vicryl suture. The subcutaneous layers were then closed with 2-0 Vicryl suture. Skin incisions closed with jairon. Sterile dressing was applied. The patient tolerated the procedure well with no intraoperative complications noted. Wilfrido Kirby, Physician Twine Reeling Machine Operator-Certified, was scrubbed and present during the entire procedure to include patient positioning and the procedure itself. The medical necessity of physician child center assistant was indicated in this case due to the complexity of the procedure. He assisted with appropriate manipulation of the leg and also assisted with both achieving and maintaining fracture reduction along with implantation of the external fixation device. Bob Carty MD JWM/stephania , 10:56 AM , 11:03 AM
--- NOTE | 2018-05-04 13:53 | MB ---
cc: Bob Carty MD DATE: 05/04/2018 DATE OF CONSULTATION: Left tibiofibular fracture. HISTORY OF PRESENT ILLNESS: The patient is a 43-year-old female who had a trip and fall, sustaining a traumatic injury to her left lower extremity. She sustained a left fracture of the tibia and fibula. She did not hit her head. Denies loss of consciousness. She is reported to be homeless. She denies numbness or tingling. Pain is moderate to severe and worsens with any movement. She cannot stand or bear weight. PAST MEDICAL HISTORY: Negative. PAST SURGICAL HISTORY: Negative. MEDICATIONS: She takes no medications. ALLERGIES: NO KNOWN DRUG ALLERGIES. FAMILY HISTORY: Reviewed and noncontributory. SOCIAL HISTORY: She lives in the [facility]. She is homeless. She drinks 8 beers a day. She smokes 1 pack a day. Denies drugs. REVIEW OF SYSTEMS: Negative for 10 systems other than in HPI. PHYSICAL EXAMINATION: GENERAL: The patient is awake and alert, lying in bed, in no acute distress. HEENT: Normocephalic, atraumatic. Pupils round. Extraocular muscles intact. NECK: Supple. LUNGS: Clear. HEART: Regular rate and rhythm. ABDOMEN: Soft, nontender. EXTREMITIES: Left lower extremity shows swelling, tenderness, deformity and crepitation along the region of her fracture. She has brisk capillary refill. Sensation is intact distally. IMAGING DATA: X-ray of the left tibia shows a displaced tibia and fibula fracture. IMPRESSION: A 43-year-old female status post fall with a displaced tibia and fibula fracture. PLAN: I discussing the diagnosis with the patient and treatment options. I spoke with her the options of nonoperative treatment versus surgery. Surgery would consist of open reduction and internal fixation with intramedullary nailing. Risks of surgery were discussed, which include, but are not limited to anesthesia, bleeding, infection, damage to nerve, blood vessels, pain symptoms, nonunion, failure of hardware, blood clots, pulmonary embolism and even . The patient's pain is severe. She favored the benefits over the risks. She did wish to proceed with surgery. Written consent was obtained. The surgical site was then marked. MD WAYNE Maria/katt , 10:58 AM , 11:05 AM
[2018-05-04] MEDS ORDERED: Calcium Gluconate Inj 1 GM in Dextrose 5% in Water Inj 100 ML IV.SIG ONE ×2 (14:00)
--- NOTE | 2018-05-04 14:46 | XR ---
EXAM DATE: 05/04/2018 2:41 PM EST AGE/SEX: 43 years / Female INDICATIONS: Tibial nail. CLINICAL DATA: This is the patient's initial encounter. Patient reports that signs and symptoms have been present for 1 day and indicates a pain score of Nonresponsive. MEDICAL/SURGICAL HISTORY: Non-responsive. Non-responsive. COMPARISON: No prior exams available for comparison. FINDINGS: Hardware has been placed in the left tibia status post ORIF. The tibial fracture is well aligned. Fib ular fracture is again noted and adequately aligned. CONCLUSION: Status post ORIF of left tibial fracture with good position of the hardware and good alignment. Electronically signed by: Surya Alejandro MD 05/04/2018 2:44 PM EST
--- NOTE | 2018-05-04 15:15 | ECG ---
Date Performed: 05/03/2018 Time Performed: 13:19:01 PTAGE: 43 years EKG: Sinus rhythm NORMAL ECG PREVIOUS TRACING : 11/17/2017 11.23 Since the previous tracing, no significant change noted DOCTOR: Mariusz Navarrete Interpretating Date/Time 05/04/2018 15:14:53
[2018-05-04] MEDS: ceFAZolin 2 GM Premix Inj 2 GM/50 ML PIGGYBACK IV.SIG SCH (17:28)
[2018-05-04] MEDS: Senna/Docusate Sodium 8.6/50 MG Tablet PO SCH (20:16)
[2018-05-05] MEDS: ceFAZolin 2 GM Premix Inj 2 GM/50 ML PIGGYBACK IV.SIG SCH ×2 (01:53→09:54)
[2018-05-05 06:09] LABS: Hematocrit 26.8 % (35.0-46.0)
[2018-05-05] MEDS: Sod Chloride 0.9% Inj 1,000 ML IV.CONT SCH ×2 (06:12→15:43)
[2018-05-05 06:27] LABS: Anion Gap 6 meq/L (5-15); Blood Urea Nitrogen 4 mg/dL (7-18); Calcium 8.1 mg/dL (8.5-10.1); Carbon Dioxide 26.6 meq/L (21.0-32.0); Chloride 105 meq/L (98-107); Glomerular Filtration Rate Greater Than 89 mL/min (>89); Glucose,Random 94 mg/dL (74-106); Sodium 138 meq/L (136-145)
[2018-05-05] MEDS: Multivitamin/Minerals Therapeutic Tablet PO SCH (08:47)
[2018-05-05] MEDS: Senna/Docusate Sodium 8.6/50 MG Tablet PO SCH ×2 (08:47→22:21)
[2018-05-05] MEDS: Folic Acid 1 MG Tablet PO SCH (08:47)
--- NOTE | 2018-05-05 09:32 | P.PNOP ---
Subjective Interval history: pain tolerable Physical Exam Vital signs: Vital Signs 05/04/18 11:10 05/04/18 11:15 05/04/18 11:30 Temperature 98.5 F Pulse Rate 112 H 104 H 87 Respiratory Rate 12 10 L 10 L Blood Pressure 120/62 156/87 H 134/78 Pulse Oximetry 97 99 96 05/04/18 11:45 05/04/18 12:00 05/04/18 12:15 Temperature 97.8 F Pulse Rate 82 80 85 Respiratory Rate 10 L 12 12 Blood Pressure 142/67 H 127/76 126/79 Pulse Oximetry 96 96 97 05/04/18 16:00 05/04/18 20:00 05/05/18 00:00 Temperature 97.1 F L 97.8 F 98.2 F Pulse Rate 89 85 101 H Respiratory Rate 17 18 19 Blood Pressure 111/61 124/66 114/64 Pulse Oximetry 98 99 98 05/05/18 04:00 05/05/18 07:05 05/05/18 07:30 Temperature 98.5 F 98.5 F Pulse Rate 85 95 H Respiratory Rate 17 14 18 Blood Pressure 144/56 H 117/64 Pulse Oximetry 98 99 Intake & Output 05/04/18 05/05/18 05/05/18 18:59 06:59 18:59 Intake Total 2059 / 2059 50 / 50 Balance 2059 50 / 50 Weight 61.4 kg Intake: IV 1260 / 1260 50 / 50 NS Inj 1,000 ML @ 100 mls/hr IV 1000 / 1000 .CONT .Q10H [facility] Rx#:[id number] Calcium Gluconate Inj 1 GM In 110 / 110 D5W Inj 100 ML @ 110 mls/hr IV. SIG ONCE ONE Rx#:[id number] Ancef 2 GM Premix Inj 2 gm In 50 / 50 50 / 50 50 ml @ 100 mls/hr IV.SIG Q8H [facility] Rx#:[id number] Rocephin Inj 1,000 MG In NS Inj 100 / 100 100 ML @ 200 mls/hr IV.SIG Q24H [facility] Rx#:[id number] Oral 800 / 800 Other: # Voids 5 7 Date of Last Bowel Movement 05/02/18 Narrative: in bed, nad splint c/d/i nvi sensation intact able to move toes Results - Labs CBC & Chem 7: 05/05/18 05:27 05/05/18 05:27 Laboratory Results - last 24 hr 05/05/18 05/05/18 05:27 05:27 Hgb 9.0 L D Hct 26.8 L Sodium 138 Potassium 4.0 Chloride 105 Carbon Dioxide 26.6 Anion Gap 6 BUN 4 L Creatinine 0.51 Estimated GFR Greater than 89 Random Glucose 94 Calcium 8.1 L - Imaging Impressions Tibia/Fibula X-Ray 05/04/18 00:00 CONCLUSION: Status post ORIF of left tibial fracture with good position of the hardware and good alignment. Assessment and Plan - Ortho Post Op Day # 1 - Assessment and Plan s/p L IM Tibia nail POD#1 NWB maintain splint asa 81 ortho stable d/c planning f/up dr. watts 2 weeks
[2018-05-05] MEDS: Morphine Inj 4 MG/ML Vial IV.PUSH PRN (09:54)
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
[2018-05-05 11:59] LABS: Reticulocyte Percent 1.2 % (0.4-3.0)
[2018-05-05 12:11] LABS: % Iron Saturation 12.6 % (20-50)
[2018-05-05 12:36] LABS: Folate 6.3 ng/mL (3.1-17.5)
[2018-05-05] MEDS: Ferrous Sulfate 325 MG Tablet PO SCH ×2 (15:37→22:21)
[2018-05-06 05:22] LABS: Hematocrit 25.1 % (35.0-46.0); Hemoglobin 8.8 gm/dL (11.6-15.3)
[2018-05-06 06:09] LABS: Calcium 8.4 mg/dL (8.5-10.1)
[2018-05-06 06:10] LABS: Total Protein 6.2 g/dL (6.4-8.2)
[2018-05-06] MEDS: Folic Acid 1 MG Tablet PO SCH (08:07)
[2018-05-06] MEDS: Ferrous Sulfate 325 MG Tablet PO SCH (08:07)
[2018-05-06] MEDS: Multivitamin/Minerals Therapeutic Tablet PO SCH (08:07)
[2018-05-06] MEDS: Senna/Docusate Sodium 8.6/50 MG Tablet PO SCH (08:08)
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
[2018-05-07 23:52] LABS: Hepatitis C RNA (PCR) log IUs 4.31
== END 2018-05-06 14:41 | disposition home or self-care (01) ==
LOC: NEPC 11:28 → NEDA 14:32 → N06 15:06
PROVIDERS: ADMIT Family Medicine; ATTEND Family Medicine
PROC: ORIFTIB (2018-05-04 09:39)